=== PATIENT | female | born 1960 | race Caucasian/White ===

== ENCOUNTER 2020-01-17 07:00 | Day surgery (SDC) | payer OTHER ==
[2020-01-17] MEDS ORDERED: EPINEPHRINE/PF 1 MG/ML AMP ONE (07:24)
[2020-01-17] MEDS ORDERED: Ringers Lactate 1,000 ML IV ONE (07:31)
[2020-01-17 07:40] VITALS: TEMP 98.3
[2020-01-17] MEDS ORDERED: propofoL 200 MG/20 ML VIAL IV ONE (08:43)
[2020-01-17] MEDS ORDERED: LIDOCAINE 1% MPF 5 ML VIAL ONE ×2 (08:43→08:44)
--- NOTE | 2020-01-17 10:32 | OP ---
Surgeon: Hugo Hartmann MD Procedure To Be Performed: Esophagogastroduodenoscopy. Indication For Procedure: Nausea, vomiting, anorexia, weight loss, abnormal liver enzymes. Plan For Anesthesia: Monitored anesthesia care. Complexity: Average. Technique: After obtaining informed consent from the patient and explaining the risks and complicati ons, which include, but are not limited to bleeding, infection, perforation, and anesthesia complicat ion, patient was placed in the left lateral position and sedation was given. From then on the scope was advanced to the mouth and carefully guided up till the second portion of the duodenum. After the completion of examination, scope and equipment were withdrawn and procedure terminated in a safe man ner. Findings: Esophagus: No gross lesion was seen in the entire esophagus. The GE junction was at 37 c m. Stomach: Mild to moderate patchy erythema seen in the body and antrum. Biopsies taken. Duodenum: The bulb, second and actually scope was advanced to the third portion later on, all appear ed normal. Complications: None. Tolerance To Anesthesia: Excellent. Postop Diagnosis: Gastritis. Plan: 1.Await pathology results. 2.Oral PPI. 3.Follow up in the GI clinic in 2 weeks. US/MODL Voice ID: [id number] Report ID: [id number]
[2020-01-17 11:53] VITALS: BP 145/85; O2SAT 99
== END 2020-01-17 09:45 | disposition home or self-care (01) ==
LOC: OR 07:00
PROVIDERS: ATTEND Internal Medicine Gastroenterology
PROC: 0DB78ZX Excision of Stomach, Pylorus, Via Natural or Artificial Opening Endoscopic, Diagnostic (ICD-10-PCS; 2020-01-17)
PROC: 0DB68ZX Excision of Stomach, Via Natural or Artificial Opening Endoscopic, Diagnostic (ICD-10-PCS; principal; 2020-01-17 08:15)
DX: K29.50 Unspecified chronic gastritis without bleeding (principal); R94.5 Abnormal results of liver function studies; R11.2 Nausea with vomiting, unspecified; R63.0 Anorexia; F17.210 Nicotine dependence, cigarettes, uncomplicated; I10 Essential (primary) hypertension; K76.9 Liver disease, unspecified; R53.83 Other fatigue; R63.4 Abnormal weight loss
CPT/HCPCS: 88312; 88305; 43239; J2704; J7120; J0171